=== PATIENT | female | born 1985 | race Caucasian/White ===

== ENCOUNTER 2019-09-09 14:28 | Emergency (ER) | payer OTHER, SELFPAY ==
[2019-09-09 14:33] VITALS: BP 137/80; PULSE 99; RESP 16; TEMP 36.1; O2SAT 100
--- NOTE | 2019-09-09 16:46 | ED.URI ---
HPI - URI/Sore Throat General Chief Complaint: Upper Respiratory Infection Stated Complaint: nasal stuffiness Time Seen by Provider: 09/09/19 15:55 Source: patient Mode of arrival: ambulatory Limitations: no limitations History of Present Illness HPI Narrative: Patient is presenting with chief complaint of nasal congestion of the past few days. Patient states that she had a cold and her cough and other symptoms have resolved except for nasal congestion. Patient states she has been using Synex but the congestion has actually worsened over the past 2 days. Related Data Allergies Allergy/AdvReac Type Severity Reaction Status Date / Time No Known Allergies Allergy Unknown Verified 09/09/19 15:48 Review of Systems Review of Systems: Narrative: CONSTITUTIONAL: Denies fever, chills, or sweats. EYES: Denies visual changes, redness, or discharge. ENT: Reports rhinorrhea, congestion, denies sore throat, or otalgia. CARDIOVASCULAR: Denies chest pain, palpitations, or edema. RESPIRATORY: Denies cough or dyspnea. GASTROINTESTINAL: Denies abdominal pain, nausea, vomiting, or diarrhea. GENITOURINARY: Denies dysuria or hematuria. SKIN: Denies rash or itching. MUSCULOSKELETAL: Denies back pain, joint pain, or myalgia. NEUROLOGIC: Denies headache, numbness, dizziness, or weakness. PSYCHIATRIC: Denies anxiety or depression. PMFSH Social History Social History Gender identity (if verbalized by the patient): Female Exam Narrative: Exam Narrative: GENERAL: Well-appearing, well-nourished, and in no acute distress. HEAD: Normocephalic, atraumatic. EYES: PERRLA and EOMI. ENT: Nares congested, clear rhinorrhea no epistaxis. Mucous membranes moist. Oropharynx without tonsillar hypertrophy exudate or other lesions. Bilateral TMs pearly lucero nonbulging NECK: Supple. No adenopathy or masses. No carotid bruits or JVD CHEST: Clear to auscultation. No respiratory distress. No wheezes rales or rhonchi HEART: Regular rate and rhythm. Normal peripheral pulses. SKIN: Warm, dry, no rash. NEURO: No focal deficits. Alert and oriented x3. PSYCH: Normal mood and affect. Course Vital Signs Vital signs: Vital Signs Temperature 97.0 F L 09/09/19 14:33 Pulse Rate 99 09/09/19 14:33 Respiratory Rate 16 09/09/19 14:33 Blood Pressure 137/80 09/09/19 14:33 Pulse Oximetry 100 09/09/19 14:33 Temperature 97.0 F L 09/09/19 14:33 Pulse Rate 99 09/09/19 14:33 Respiratory Rate 16 09/09/19 14:33 Blood Pressure 137/80 09/09/19 14:33 Pulse Oximetry 100 09/09/19 14:33 MDM - URI/Sore Throat MDM Narrative Medical decision making narrative: Patient instructed to stop Synex or any Afrin type medications. Discussed rebound congestion with the patient. Discussed antihistamine and Flonase use. Instructed the patient to follow-up with her primary care for further evaluation if symptoms persist. Differential Diagnosis Differential diagnosis: Likely upper respiratory infection, otitis media, sinusitis, viral infection, bronchitis, influenza and pharyngitis Lab Data Labs: Influenza A Screen Negative Reference Range: Negative Influenza B Screen Negative Reference Range: Negative Discharge Plan Discharge Clinical Impression: Nasal congestion Allergic rhinitis Qualifiers: Allergic rhinitis trigger: unspecified Allergic rhinitis seasonality: unspecified Qualified Code(s): J30.9 - Allergic rhinitis, unspecified Patient Disposition: Home, Self-Care Condition: Stable Instructions: Antibiotic Form, Allergic Rhinitis (ED) Additional Instructions: Take Zyrtec and Flonase as directed. Follow-up with primary care for additional evaluation and management. Return to emergency department if you have any emergent symptoms. Prescriptions: New cetirizine [Zyrtec] 10 mg tablet 10 mg PO DAILY PRN (Reason: allergy symptoms) Qty: 20 RF: 0 fluticasone propionate 50 mcg/actua
== END 2019-09-09 17:48 | disposition home or self-care (01) ==
PROVIDERS: Emergency Provider Emergency Medicine; PCP Nurse Practitioner Family
DX: R09.81 Nasal congestion (principal); J30.9 Allergic rhinitis, unspecified
CPT/HCPCS: 87804; 99283

== ENCOUNTER 2019-09-15 12:41 | Outpatient (CLI) | payer OTHER, SELFPAY ==
--- NOTE | ~2019-09-15 | US_ITS ---
EXAMINATION: US OB /maternal detail DATE: 09/15/2019 13:46 INDICATION: Second trimester anatomic survey TECHNIQUE: Real-time ultrasound of the pelvis was performed. COMPARISON: None. FINDINGS: There is a single living fetus in variable presentation. The placenta is anterior and 3.2 cm from the internal cervical os. heart rate is 139 beats per minute (bpm). cardiac activity and fe alize movement are noted. The amniotic fluid index is 12.9 cm, which is normal. The following anatomy was identified as normal: 4 chamber heart 3 vessel cord cord insertion kidneys urinary bladder stomach spine diaphragm ventricles cisterna magna cerebellum The following biometric data were obtained: Biparietal diameter (BPD): 4.6 cm; head circumference (HC): 17.3 cm; abdominal circumference (AC): 14 .1 cm; femur length (FL): 3.4 cm. These measurements are concordant. Estimated weight is 337 g +/- 50 g, which correlates with the >97th percentile when 02/10/2020 i s used as estimated date of delivery. As single measurements, these parameters are each equal to the following estimated gestational ages w ith ranges of +/- 2 standard deviations: BPD: 20 weeks 1 days +/- 1 weeks 5 days. HC: 19 weeks 6 days +/- 1 weeks 3 days. AC: 19 weeks 4 days +/- 2 weeks 0 days. FL: 21 weeks 0 days +/- 1 weeks 6 days. estimated gestational age based solely on measurements from this exam is 20 weeks 1 days +/- 1 weeks 3 days. IMPRESSION: 1. Single living fetus in variable presentation. 2. Estimated weight is 337 g +/- 50 g, which correlates with the >97th percentile when 0 is used as estimated date of delivery. 3. Normal amniotic fluid index. Reviewed, dictated and finalized at location A. IMPRESSION: 1. Single living fetus in variable presentation. 2. Estimated weight is 337 g +/- 50 g, which correlates with the >97th pe rcentile when 02/10/2020 is used as estimated date of delivery. 3. Normal amniotic fluid index.
== END 2019-09-15 12:42 | disposition home or self-care (01) ==
PROVIDERS: PCP Nurse Practitioner Family; Visit Provider Obstetrics & Gynecology
DX: Z36.9 Encounter for antenatal screening, unspecified (principal); Z3A.20 20 weeks gestation of pregnancy
CPT/HCPCS: 76805

== ENCOUNTER 2020-09-10 16:06 | Emergency (ER) | payer OTHER, SELFPAY ==
--- NOTE | ~2020-09-10 | XR_ITS ---
EXAMINATION: XR chest 2V 09/10/2020 16:27 INDICATION: Shortness of breath PROCEDURE: AP and lateral views of the chest COMPARISON: 07/13/2020 FINDINGS: The lungs are clear. The cardiomediastinal silhouette is within normal limits. There are no pleural effusions. There is no pneumothorax suspected. IMPRESSION: 1: NO ACUTE CARDIOPULMONARY DISEASE. Reviewed, dictated and finalized at location A.
[2020-09-10 16:07] VITALS: BP 174/90; PULSE 138; RESP 24; TEMP 36.7; O2SAT 100
--- NOTE | 2020-09-10 16:13 | ECG_ITS ---
Measurements Intervals [place] Rate: 131 P: 46 SD: 138 QRS: 18 QRSD: 89 T: 31 QT: 308 QTc: 455 Interpretive Statements SINUS TACHYCARDIA CONSIDER INFERIOR INFARCT, AGE INDETERMINATE BASELINE ARTIFACT- I, II, III, AVR, AVL, AVF, V1-V6 ABNORMAL ECG Electronically Signed On 09-10-2020 17:21:59 CDT by Roberto Bush D.O.
[2020-09-10 16:21] LABS: Basophils Absolute Auto 0.1 K/mm3 (0.0-0.1); Basophils Percent Auto 0.5 % (0.2-1.2); Eosinophils Absolute Auto 0.2 K/mm3 (0-0.3); Eosinophils Percent Auto 1.9 % (0-4.4); Hematocrit 40.5 % (37.0-47.0); Hemoglobin 13.1 g/dL (12.0-15.0); Immature Granulocyte Absolute 0.03 K/mm3 (0.00-0.031); Immature Granulocyte Percent A 0.3 % (0-0.5); Lymphocytes Absolute Auto 4.53 K/mm3 (0.9-3.2); Lymphocytes Percent Auto 43.1 % (18.3-44.2); Mean Corpuscular HGB Conc 32.3 g/dl (32-36); Mean Corpuscular Hemoglobin 27.7 pg (26-34); Mean Corpuscular Volume 85.6 fl (80-100); Mean Platelet Volume 11.4 fl (7.4-10.4); Monocytes Absolute Auto 0.6 K/mm3 (0.1-0.6); Monocytes Percent Auto 5.7 % (2.6-8.5); Neutrophils Absolute Auto 5.1 K/mm3 (1.3-6.7); Neutrophils Percent Auto 48.5 % (45.5-73.1); Platelet Count Result 259 k/mm3 (150-375); Red Blood Count 4.73 M/mm3 (4.2-5.4); White Blood Count 10.5 K/mm3 (4.5-10.0)
--- NOTE | 2020-09-10 16:27 | ED.ARRPALP ---
HPI - Arrhythmia/Palpitations General Chief Complaint: Arrhythmia/Palpitations Stated Complaint: heart racing Time Seen by Provider: 09/10/20 16:11 History of Present Illness HPI narrative: 34 yo female presents to the ED for palpitations. She is a hospital employee. She was working when she suddenly began feeling strange. She noted some dizziness. this was worse with any sudden movements. She then checked her watch, which said her heart rate was 150. She notes some mild SOB and nausea. No CP, fever, TERRAZAS, abdominal pain. Related Data Allergies Allergy/AdvReac Type Severity Reaction Status Date / Time No Known Allergies Allergy Unknown Verified 09/10/20 16:11 Review of Systems Review of Systems: All systems reviewed & are unremarkable except as noted in HPI and below Constitutional: Constitutional: Denies chills, Denies fever(s) and Denies weakness Eyes: Eyes: Denies no additional eye complaints ENT: Reports dizziness Cardiovascular: Cardiovascular: Denies chest pain Respiratory: Respiratory: Reports dyspnea Gastrointestinal: Gastrointestinal: Denies abdominal pain and Reports nausea Genitourinary: Genitourinary: Reports no additional female genitourinary complaints Neurologic: Denies confusion and Denies weakness [facility] Social History Social History Gender identity (if verbalized by the patient): Female Exam Const: General: no acute distress and alert Nutritional Appearance: obese Orientation/consciousness: patient oriented x3 HENMT: Head: normal to inspection Ears: TM's normal bilaterally and EAC's normal Eyes: Conjunctivae: conjunctivae normal Pupils: Equal, round and reactive pupils present EOM: EOMs intact bilaterally Neck: Neck: normal visual inspection and no lymphadenopathy Resp: Effort & Inspection: normal respiratory effort Auscultation: clear to auscultation bilaterally Cardio: Rate: regular rate Rhythm: regular rhythm Skin: General skin exam: normal color Neuro: General: patient oriented x3, moves all extremities, no focal motor deficits and CN's II-XI intact bilaterally Cranial nerves: Yes Nystagmus not present Speech: normal speech Gait exam (Neuro): Normal gait present Extrem: General: normal to inspection Psych: Affect: Anxious affect present Course Vital Signs Vital signs: Vital Signs Temperature 36.7 C 09/10/20 16:07 Pulse Rate 138 H 09/10/20 16:07 Respiratory Rate 24 H 09/10/20 16:07 Blood Pressure 174/90 H 09/10/20 16:07 Pulse Oximetry 100 09/10/20 16:07 Temperature 36.1 C L 09/10/20 18:44 Pulse Rate 98 09/10/20 18:44 Respiratory Rate 26 H 09/10/20 18:44 Blood Pressure 129/79 09/10/20 18:44 Pulse Oximetry 99 09/10/20 18:44 MDM - Arrhythmia/Palpitations Differential Diagnosis Differential diagnosis: Likely palpitations, anxiety and sinus tachycardia Medical Records Attestation: I reviewed the patient's medical records. Lab Data Attestation: I reviewed the patient's lab results. Result diagrams: 09/10/20 16:14 09/10/20 16:14 Labs: Lab Results 09/10/20 09/10/20 Range/Units 16:14 16:14 WBC 10.5 H (4.5-10.0) K/mm3 RBC 4.73 (4.2-5.4) M/mm3 Hgb 13.1 (12.0-15.0) g/dL Hct 40.5 (37.0-47.0) % MCV 85.6 (80-100) fl MCH 27.7 (26-34) pg MCHC 32.3 (32-36) g/dl RDW 14.0 (11.5-14.5) % Plt Count 259 (150-375) k/mm3 MPV 11.4 H (7.4-10.4) fl Immature Gran % (Auto) 0.3 (0-0.5) % Neut % (Auto) 48.5 (45.5-73.1) % Lymph % (Auto) 43.1 (18.3-44.2) % Boyle % (Auto) 5.7 (2.6-8.5) % Eos % (Auto) 1.9 (0-4.4) % Baso % (Auto) 0.5 (0.2-1.2) % Lymph # (Auto) 4.53 H (0.9-3.2) K/mm3 Boyle # (Auto) 0.6 (0.1-0.6) K/mm3 Eos # (Auto) 0.2 (0-0.3) K/mm3 Baso # (Auto) 0.1 (0.0-0.1) K/mm3 Abs Immat Gran (auto) 0.03 (0.00-0.031) K/mm3 Absolute Neuts (auto) 5.1 (1.3-6.7) K/mm3 Absolute Nucle
[2020-09-10 16:29] LABS: Atypical Lymphocytes Present; Platelet Estimate Adequate (Adequate)
[2020-09-10 16:35] LABS: Anion Gap 12 mmol/L (8-16); Blood Urea Nitrogen 15 mg/dL (7-17); Calcium 8.8 mg/dL (8.4-10.2); Carbon Dioxide 22 mmol/L (22-30); Chloride 106 mmol/L (98-107); Estimated CRCL calculation 163 ml/min; Estimated Glomerular Filt Rate > 60; Glucose 94 mg/dL (65-105); Potassium 3.5 mmol/L (3.4-5.0); Sodium 140 mmol/L (137-145)
[2020-09-10] MEDS: MECLIZINE HCL 25 MG TABLET 50 MG PO (17:12)
[2020-09-10] MEDS: SODIUM CHLORIDE 0.9% IV 1,000 ML 999 ML IV CONT (17:13)
[2020-09-10 17:15] VITALS: BP 154/76; PULSE 112; RESP 28; TEMP 36.6; O2SAT 100
[2020-09-10 17:19] VITALS: O2SAT 100
[2020-09-10 18:44] VITALS: BP 129/79; PULSE 98; RESP 26; TEMP 36.1; O2SAT 99
== END 2020-09-10 18:46 | disposition home or self-care (01) ==
PROVIDERS: Emergency Provider Emergency Medicine; PCP Nurse Practitioner Family
DX: R00.0 Tachycardia, unspecified (principal); R42 Dizziness and giddiness; R94.31 Abnormal electrocardiogram [ECG] [EKG]
CPT/HCPCS: 36415; 71046; 80048; 85025; 93005; 96360; 99284; A9270; J7030

== ENCOUNTER 2021-06-01 11:39 | Outpatient (CLI) | payer OTHER, SELFPAY ==
[2021-06-01 12:38] LABS: Hemoglobin A1C 4.9 % (<5.7)
== END 2021-06-01 11:40 | disposition home or self-care (01) ==
LOC: ANHLAB 11:41
PROVIDERS: Visit Provider Obstetrics & Gynecology
DX: R73.09 Other abnormal glucose (principal)
CPT/HCPCS: 36415; 83036